=== PATIENT | female | born 1985 | race Caucasian/White ===

== ENCOUNTER → 2016-05-07 | Outpatient (CLI) | payer MEDICAID ==
[~2016-05-07] MED LIST: BIRTH CONTROL PO; DULOXETINE 30MG30 MG PO; FERROUS SULFAT325 M1 OR; FLEXERIL10 MG PO; PERCOCET 325 MG1 TA4 PO; PRENATAL1 TAB PO; QVAR8.7 G1 IH; TOPAMAX100 MG PO; TYLENOL W/CODEI1 TA4 PO; ULTRAM50 MG PO; VOLTAREN75 MG PO
--- NOTE | 2016-05-08 11:21 | RADIOLOGY REPORT PS360 ---
CT EXT.UPPER-RT-W/O CONTRAST INDICATION: CLOSED FRACTURE TRAPEZOID RT WRIST ORDERING PHYSICIAN: MARGO Prasad PATIENT AGE: 31 years COMPARISON: Radiograph of 04/01/2016 TECHNIQUE: Axial images are obtained without contrast. Sagittal and coronal reformatted images are reviewed as well. FINDINGS: No fracture identified. Specifically, no fracture of the trapezoid evident. It is possible that this previously noted abnormality could represent a hairline fracture which is healed in the interval or could've represented a mock line from other overlying bony structures. There is mild prominence of the scapholunate space measuring up to 4 mm which may be seen with scapholunate ligamentous injury. Please correlate clinically. There is a small oval area of soft tissue density along the radial aspect of the scaphotrapezium joint dorsally and may be due to a small effusion/fluid collection. Please correlate clinically. MRI may be of further value if clinically warranted. No other significant anomalies are evident. IMPRESSION: 1. No acute fracture apparent. 2. Mild prominence of the scapholunate space which may be due to ligamentous injury of the scapholunate ligament. 3. Small fluid collection along the dorsal and radial aspect of the wrist at the scaphotrapezium area and could be due to small effusion or other fluid collection.
== END ==
LOC: RAD 13:22
DX: S62.184D Nondisplaced fracture of trapezoid [smaller multangular], right wrist, subsequent encounter for fracture with routine healing (principal)

== ENCOUNTER → 2017-03-22 | Outpatient (CLI) | payer MEDICAID ==
--- NOTE | 2017-03-22 16:42 | RADIOLOGY REPORT PS360 ---
US PELVIS-TRANSVAGINAL ONLY HISTORY: PELVIC PAIN ORDERING PHYSICIAN: Cholo Nava MD PATIENT AGE: 31 years COMPARISON: 12/17/2014 FINDINGS: There has been an interval hysterectomy and bilateral oophorectomy. The vaginal cuff has an unremarkable appearance. No obvious pelvic mass or abnormal fluid collection. IMPRESSION: Status post hysterectomy and bilateral oophorectomy otherwise negative pelvic ultrasound
== END ==
LOC: RAD 14:11
DX: N94.9 Unspecified condition associated with female genital organs and menstrual cycle (principal); N95.0 Postmenopausal bleeding